=== PATIENT | female | born 1990 | race African-American/Black ===

== ENCOUNTER 2017-05-14 02:11 | Emergency (ER) | payer OTHER ==
[~2017-05-14] VITALS: Ht 165.1 cm; Wt 95.3 kg
[~2017-05-14 02:11] MED LIST: ANTIVERT25 MG PO; COLACE100 MG PO; HYDROXYZINE HCL25 M2 PO; IBUPROFEN 600600 M1 PO; LANOLIN56 GM; MEDROLDOSEPACK PO; PHENERGAN 25 MG25 M1 PO; PRENATAL VITAM1 EAC6 PO; PROTONIX40 MG PO; TRAMADOL 50 MG50 MG PO; ZOFRAN ODT4 MG PO
[2017-05-14 03:21] LABS: ABSOLUTE NEUTROPHILS 4.4 thou/uL (1.4-8.2); BASOPHILS 0.8 % (0.0-2.0); EOSINOPHILS 1.8 % (0.0-3.0); HEMATOCRIT 34.9 % (37.0-47.0); HEMOGLOBIN 11.3 gm/dL (12.0-15.0); LYMPHOCYTES 29.8 % (24.0-44.0); MCH 26.6 pg (26.0-34.0); MCHC 32.4 g/dL (28.0-37.0); MCV 82.1 fL (80.0-100.0); MONOCYTES 6.6 % (1.0-8.0); PLATELET COUNT 341 thou/uL (150-400); RBC 4.25 mil/uL (4.20-5.00); WBC 7.3 thou/uL (4.0-11.0)
[2017-05-14 03:23] LABS: ANION GAP 9 mmol/L (7-16); BUN 13 mg/dL (7-18); CHLORIDE 103 mmol/L (98-107); CO2 25 mmol/L (21-32); CREATININE 0.8 mg/dL (0.6-1.0); GLUCOSE 91 mg/dL (74-106); POTASSIUM 3.4 mmol/L (3.5-5.1); SODIUM 137 mmol/L (136-145)
[2017-05-14 03:35] LABS: ALBUMIN 3.4 g/dL (3.4-5.0); DIRECT BILIRUBIN < 0.1 mg/dL (<0.1-0.3); LIPASE 77 U/L (73-393); SGOT 17 U/L (15-37); SGPT 22 U/L (30-65); TOTAL BILIRUBIN 0.3 mg/dL (<0.1-1.0); TOTAL PROTEIN 7.8 g/dL (6.4-8.2)
[2017-05-14] MEDS ORDERED: PRILOSEC 20 MG20 MG PO (03:58)
[2017-05-14] MEDS ORDERED: ZOFRAN4 MG PO (03:58)
[2017-05-14 04:07] VITALS: BP 122/64
== END 2017-05-14 04:08 | disposition home or self-care (01) ==
LOC: ER 02:11
PROVIDERS: Emergency Medicine
DX: K92.0 Hematemesis (principal); K92.1 Melena; Z90.49 Acquired absence of other specified parts of digestive tract

== ENCOUNTER 2018-05-13 23:09 | Emergency (ER) | payer OTHER ==
[~2018-05-13] VITALS: Ht 165.1 cm; Wt 104.3 kg
[~2018-05-13 23:09] MED LIST changes: +PRILOSEC 20 MG20 MG PO; +ZOFRAN4 MG PO
[2018-05-14 01:07] VITALS: BP 146/92
== END 2018-05-14 01:10 | disposition home or self-care (01) ==
LOC: ER 23:09
DX: J02.8 Acute pharyngitis due to other specified organisms (principal); B97.89 Other viral agents as the cause of diseases classified elsewhere; Z90.49 Acquired absence of other specified parts of digestive tract

== ENCOUNTER 2018-05-19 00:43 | Emergency (ER) | payer OTHER ==
[~2018-05-19] VITALS: Ht 165.1 cm; Wt 117.9 kg
[2018-05-19] MEDS ORDERED: AUGMENTIN 875-1 EACH PO (01:00)
[2018-05-19] MEDS ORDERED: PSEUDOEPHEDRINE30 MG PO (01:01)
[2018-05-19 01:23] VITALS: BP 131/85
== END 2018-05-19 01:24 | disposition home or self-care (01) ==
LOC: ER 00:43
DX: J32.9 Chronic sinusitis, unspecified (principal); Z90.49 Acquired absence of other specified parts of digestive tract

== ENCOUNTER 2018-06-17 01:05 | Emergency (ER) | payer OTHER ==
[~2018-06-17] VITALS: Ht 165.1 cm; Wt 108.9 kg
[~2018-06-17 01:05] MED LIST changes: +AUGMENTIN 875-1 EACH PO; +PSEUDOEPHEDRINE30 MG PO
[2018-06-17 02:47] VITALS: BP 127/77
== END 2018-06-17 03:09 | disposition home or self-care (01) ==
LOC: ER 01:05
DX: S83.011A Lateral subluxation of right patella, initial encounter (principal); Z90.49 Acquired absence of other specified parts of digestive tract; W18.40XA Slipping, tripping and stumbling without falling, unspecified, initial encounter; Y92.89 Other specified places as the place of occurrence of the external cause; Y93.89 Activity, other specified; Y99.8 Other external cause status

== ENCOUNTER 2019-07-23 20:12 | Emergency (ER) | payer BC, OTHER ==
[~2019-07-23] VITALS: Ht 162.6 cm; Wt 99.8 kg
[2019-07-23] MEDS ORDERED: PERCOCET 5-3251 EACH PO (20:59)
[2019-07-23 21:23] VITALS: BP 130/79
== END 2019-07-23 21:31 | disposition home or self-care (01) ==
LOC: ER 20:12
DX: S92.351A Displaced fracture of fifth metatarsal bone, right foot, initial encounter for closed fracture (principal); S93.402A Sprain of unspecified ligament of left ankle, initial encounter; Z90.49 Acquired absence of other specified parts of digestive tract; W10.9XXA Fall (on) (from) unspecified stairs and steps, initial encounter; Y93.89 Activity, other specified; Y92.098 Other place in other non-institutional residence as the place of occurrence of the external cause; Y99.8 Other external cause status